=== PATIENT | male | born 1965 | race Caucasian/White ===

== ENCOUNTER → 2021-02-21 | Outpatient (CLI) | payer BC ==
--- NOTE | 2021-02-21 17:33 | KCIC ---
Examination: 2 views of the left ankle and 3 views of the left foot HISTORY: History of left foot, ankle pain, swelling COMPARISON: None available FINDINGS: The alignment of the ankle mortise grossly appears unremarkable. Mild soft tissue swelling identified about the ankle joint. The alignment of the tarsal bones grossly appears unremarkable the alignment of the tarsometatarsal, tarsophalangeal, interphalangeal joints grossly appears unremarkable. IMPRESSION: 1. No acute osseous findings. 2. Mild soft tissue swelling identified about the ankle joint. Electronically signed by: Ton Redman MD (02/21/2021 5:31 PM) [id number]
== END ==
LOC: KCIC 15:12
PROVIDERS: ATTEND Family Medicine
DX: M79.672 Pain in left foot (principal); M25.572 Pain in left ankle and joints of left foot
CPT/HCPCS: 73600; 73630